=== PATIENT | female | born 1965 | race Caucasian/White ===

== ENCOUNTER → 2016-06-22 | Outpatient (CLI) | payer OTHER | END | disposition home or self-care (01) | LOC: CFH 12:14 | PROVIDERS: ATTEND Obstetrics & Gynecology | DX: Z12.31 Encounter for screening mammogram for malignant neoplasm of breast (principal) | CPT/HCPCS: G0202 ==

== ENCOUNTER → 2017-01-28 | Outpatient (CLI) | payer OTHER | END | disposition home or self-care (01) | LOC: CFH 07:34 | PROVIDERS: ATTEND Internal Medicine | DX: R01.1 Cardiac murmur, unspecified (principal); Z72.0 Tobacco use | CPT/HCPCS: 93306 ==

== ENCOUNTER → 2017-07-10 | Outpatient (CLI) | payer OTHER | END | disposition home or self-care (01) | LOC: CFH 10:32 | PROVIDERS: ATTEND Obstetrics & Gynecology | DX: Z12.31 Encounter for screening mammogram for malignant neoplasm of breast (principal); M16.12 Unilateral primary osteoarthritis, left hip; E55.9 Vitamin D deficiency, unspecified; E03.9 Hypothyroidism, unspecified; R53.83 Other fatigue; R84.4 Abnormal immunological findings in specimens from respiratory organs and thorax; E78.2 Mixed hyperlipidemia; R01.1 Cardiac murmur, unspecified; R71.8 Other abnormality of red blood cells; R23.4 Changes in skin texture; Z79.899 Other long term (current) drug therapy | CPT/HCPCS: 77067 ==

== ENCOUNTER → 2020-01-04 | Outpatient (CLI) | payer OTHER | END | disposition home or self-care (01) | LOC: CFH 08:10 | PROVIDERS: ATTEND Obstetrics & Gynecology | DX: Z12.31 Encounter for screening mammogram for malignant neoplasm of breast (principal) | CPT/HCPCS: 77063; 77067 ==

== ENCOUNTER → 2020-06-20 | Outpatient (CLI) | payer OTHER ==
[~2020-06-20] MED LIST: LEVO112T2 PO
[2020-06-20 09:39] LABS: BASOPHILS % (AUTO) 1 % (0-1); EOSINOPHILS % (AUTO) 2 % (1-7); LYMPHOCYTES % (AUTO) 30 % (22-44); MEAN CORPUSCULAR HEMOGLOBIN 30.2 pg (27.0-34.8); MEAN CORPUSCULAR HGB CONC 34.1 g/dL (32.4-35.8); MEAN PLATELET VOLUME 8.8 fL (7.4-10.4); MONOCYTES % (AUTO) 10 % (2-9); NEUTROPHILS % (AUTO) 57 % (42-75); PLATELET COUNT 279 x10^3/uL (130-400); RED CELL DISTRIBUTION WIDTH 13.5 % (9.6-15.2)
[2020-06-20 09:40] LABS: ANION GAP 3 mmol/L (5-15); CALCIUM 9.2 mg/dL (8.5-10.1); CHLORIDE 109 mmol/L (98-107); CREATININE 0.59 mg/dL (0.55-1.02)
[2020-06-20 09:53] LABS: MD NO
== END | disposition home or self-care (01) ==
LOC: STAR 08:29
PROVIDERS: ATTEND Obstetrics & Gynecology
DX: Z01.818 Encounter for other preprocedural examination (principal); D07.1 Carcinoma in situ of vulva; Z20.822 Contact with and (suspected) exposure to COVID-19
CPT/HCPCS: 36415; 71046; 80048; 84702; 85025; 93005; U0003

== ENCOUNTER 2020-06-24 07:58 | Day surgery (SDC) | payer OTHER ==
[~2020-06-24] VITALS: Ht 175.3 cm; Wt 64.8 kg
[~2020-06-24 07:58] MED LIST changes: +BUPIVACAINE/PF 0.25% ONE; +EPINEPHRINE 1 MG/ML, 1ML ONE
[2020-06-24] MEDS ORDERED: CHLORHEXIDINE 15 ML UDC ONE (08:21)
[2020-06-24] MEDS ORDERED: HYDROmorphone 1 MG/ML, 1ML INJ ONE (08:29)
[2020-06-24] MEDS ORDERED: FENTANYL PF 100 MCG/2ML ONE (08:29)
[2020-06-24] MEDS ORDERED: MIDAZOLAM 1 MG/ML, 2ML ONE (08:29)
[2020-06-24] MEDS ORDERED: LACTATED RINGERS 1,000 ML IV SCH (08:30)
[2020-06-24] MEDS ORDERED: CHLORHEXIDINE 15 ML UDC PO ONE (08:30)
[2020-06-24 08:37] VITALS: BP 147/89
[2020-06-24] MEDS ORDERED: PROMETHAZINE 25 MG/ML, 1ML IVPush PRN (09:30)
[2020-06-24] MEDS ORDERED: METOPROLOL 1 MG/ML, 5ML IV PRN (09:30)
[2020-06-24] MEDS ORDERED: DIAZEPAM 5 MG/ML, 2ML IVPush PRN (09:30)
[2020-06-24] MEDS ORDERED: METOCLOPRAMIDE 5 MG/ML, 2ML IVPush PRN (09:30)
[2020-06-24] MEDS ORDERED: KETOROLAC 30 MG/1 ML IVPush PRN (09:30)
[2020-06-24] MEDS ORDERED: MEPERIDINE/PF 25MG/0.5ML IVPush PRN (09:30)
[2020-06-24] MEDS ORDERED: ONDANSETRON 2MG/ML, 2ML IVPush PRN (09:30)
[2020-06-24] MEDS ORDERED: OXYcodone 5 MG/5 ML ORAL.SOL UDC PO PRN (09:30)
[2020-06-24] MEDS ORDERED: ACETAMINOPHEN 325 MG TABLET PO PRN (09:30)
[2020-06-24] MEDS ORDERED: HALOPERIDOL 5 MG/ML IV PRN (09:30)
[2020-06-24] MEDS ORDERED: LABETALOL 5MG/ML, 20ML IV PRN (09:30)
[2020-06-24] MEDS ORDERED: FENTANYL PF 100 MCG/2ML IV PRN (09:30)
[2020-06-24] MEDS ORDERED: HYDROmorphone 1 MG/ML, 1ML INJ IVPush PRN (09:30)
[2020-06-24] MEDS ORDERED: EPHEDRINE 50 MG/ML, 1ML IVPush PRN (09:30)
[2020-06-24] MEDS ORDERED: hydrALAzine 20 MG/ML, 1ML IV PRN (09:30)
[2020-06-24] MEDS ORDERED: DIPHENHYDRAMINE 50 MG/ML, 1ML IVPush PRN (09:30)
[2020-06-24] MEDS ORDERED: CEFAZOLIN 1,000 MG ONE (09:35)
[2020-06-24] MEDS ORDERED: ONDANSETRON 2MG/ML, 2ML ONE (09:35)
[2020-06-24] MEDS ORDERED: DEXAMETHASONE 4 MG/ML, 1ML ONE (09:35)
[2020-06-24] MEDS ORDERED: PROPOFOL 10 MG/ML, 20ML ONE (09:35)
[2020-06-24] MEDS ORDERED: ACETAMINOPHEN 650 MG/20.3 ML UDC ONE (10:58)
== END 2020-06-24 11:35 | disposition home or self-care (01) ==
LOC: OUT 07:58
PROVIDERS: ATTEND Obstetrics & Gynecology
DX: D07.1 Carcinoma in situ of vulva (principal); N94.89 Other specified conditions associated with female genital organs and menstrual cycle; L08.89 Other specified local infections of the skin and subcutaneous tissue; E03.9 Hypothyroidism, unspecified; F17.210 Nicotine dependence, cigarettes, uncomplicated; Z98.890 Other specified postprocedural states; Z79.899 Other long term (current) drug therapy; Z72.89 Other problems related to lifestyle
CPT/HCPCS: 11422; 88305; J0171; J1170; J2250; J3010; J7120; J0690; J1100; J2405; J2704